=== PATIENT | male | born 1990 | race Caucasian/White ===

== ENCOUNTER 2017-09-02 05:21 | Day surgery (SDC) | payer OTHER ==
[2017-08-11 13:04] VITALS: Ht 177.8 cm; Wt 86.4 kg
[~2017-09-02] VITALS: Ht 177.8 cm; Wt 86.4 kg
[2017-09-02 05:43] VITALS: BP 122/81; PULSE 81; TEMP 36.6; O2SAT 98
[2017-09-02] MEDS ORDERED: LACTATED RINGER'S 1000ML 1,000 ML IV SCH (06:00)
[2017-09-02] MEDS ORDERED: BUPIVACAINE 0.5 % 5 MG/1 ML MPF 30ML VIAL ONE (07:04)
--- NOTE | 2017-09-02 07:24 | Progress Note ---
Progress Note Date of Service September 02, 2017. Progress Note Pt seen and said that he had breakfast with 2 muffins around 4am today. Discussed case with Dr. Santos. Pt opted to have the vasectomy done without anesthesia with local anesthesia only.
[2017-09-02] MEDS ORDERED: ACET300T3 PO (07:25)
--- NOTE | 2017-09-02 07:25 | History & Physical Bridge Note ---
H&P Re-Evaluation Bridge Note: I have examined the patient, reviewed the History & Physical and in the interval since the performance of the History & Physical I have noted the following changes of clinical significance: No changes noted
[2017-09-02] MEDS ORDERED: LIDOCAINE HCL 1% 20 ML VIAL ONE (07:52)
--- NOTE | 2017-09-02 08:24 | [facility] Operative Report ---
Operative Report Operative Date September 02, 2017. Pre-Operative Diagnosis Desire for Sterilization Post-Operative Diagnosis same Procedure(s) Performed Vasectomy under Local Anesthesia Surgeon Dr. Paulo Santos Forensic Psychologist Surgeon(s) none Estimated Blood Loss 0mL Specimens A. Right Vas Deferens B. Left Vas Deferens Drains None Anesthesia Type Local Complication(s) none Disposition yes Description of Procedure Patient was identified in the preoperative holding area, appropriate informed consents reviewed and completed and the patient was transported to the operating suite. Upon arrival he was placed in supine position where he was sterilely prepped and draped in standard fashion. I anesthetized the skin in the mid scrotum and made a 1 cm incision across the raphae. I manipulated the left vas deferens to the incision after anesthetizing perivasal tissues. I then exposed the vas for length of approximately 1/2 cm. A microclip was placed proximally and distally before excising section of vas between the 2. A 3-0 chromic suture was used outside of each previously placed clip to help hold the vas in place. I then used a needle point Bovie to cauterize the lumen of the vas. There was excellent hemostasis, and this left vas was dropped back into the left hemiscrotum. Utilizing the same incision, and anesthetized the tissues into the right scrotum and the perivasal area. I then delivered the right vas into the incision. I exposed 1.5 cm length of vas controlled proximally and distally with micro clips as well as 3-0 chromic sutures. After excising a segment of vas in between these previously placed clips, I cauterized the lumen utilizing a Bovie needlepoint. There was again excellent hemostasis, and the right vas was dropped back in the right hemiscrotum before closing the skin with 2 adjacent 3-0 chromic vertical mattress sutures. Segments of vas were passed off the table as specimen and the case concluded. The patient tolerated the procedure very well. I attest to the content of the Intraoperative Record and any orders documented therein. Any exceptions are noted below.
[2017-09-02 08:25] VITALS: BP 118/64; PULSE 81; TEMP 37; O2SAT 98
[2017-09-02] MEDS ORDERED: KETOROLAC TROMETHAMINE 30 MG/ML VIAL IV. STA (08:26)
--- NOTE | 2017-09-02 08:26 | Discharge Instructions ---
Discharge Instructions Date of Service September 02, 2017. Admission Reason for Admission: Encounter For Sterilization Discharge Discharge Diagnosis / Problem: desired sterilization Discharge Goals Goal(s): Decrease discomfort, Improve function, Increase independence, Improve disease control Activity Recommendations Activity Limitations: per Instructions/Follow-up section Lifting Limitations: none, gradually increase as tolerated (avoid strenuous exercise for 3-5 days) Exercise/Sports Limitations: gradually increase as tolerated May Resume Sexual Activity: after one week (5 days) Shower/Bathe: no limitations Driving or Machine Use: no limitations . Instructions / Follow-Up Instructions / Follow-Up It is very important to continue using contraception, as the result of the vasectomy can take several months to be achieved. We asked the return to our office in 2-3 months or 20-25 ejaculations to provide us with a semen specimen that we can analyze to determine if there are any residual sperm. Prior to obtaining an negative semen analysis, use of contraception is vital to prevent a . It is normal to see some bruising and swelling after vasectomy, as well as have discomfort for the first 3-5 days. For the next 2-3 weeks, mild trauma will elicit a pain response -which is normal. If you are doing very well at 2 weeks , you can cancel your follow-up visit. If there are any questions, I ask you to come the office and we will check your incision to make sure everything is recovering appropriately. Current Hospital Diet Patient's current hospital diet: Discharge Diet Recommended Diet: Regular Diet Procedures Procedures Performed: Vasectomy under Local Anesthesia Pending Studies Studies pending at discharge: no Medical Emergencies . Who to Call and When: Medical Emergencies: If at any time you feel your situation is an emergency, please call 911 immediately. . Non-Emergent Contact Non-Emergency issues call your: Urologist Call Non-Emergent contact if: you have a fever, temperature is above 101.5, your pain is not controlled, your pain is worsening . . "Provider Documentation" section prepared by Jim Mccoy. .
[2017-09-02] MEDS ORDERED: OXYCODONE/ACETAMINOPHEN 5-325 TAB PO PRN ×2 (08:30)
== END 2017-09-02 08:58 | disposition home or self-care (01) ==
LOC: C.ACU 05:21
PROVIDERS: ATTEND Urology
DX: Z30.2 Encounter for sterilization (principal); Z87.09 Personal history of other diseases of the respiratory system; Z98.890 Other specified postprocedural states; Z84.1 Family history of disorders of kidney and ureter; Z83.3 Family history of diabetes mellitus; Z82.49 Family history of ischemic heart disease and other diseases of the circulatory system; Z80.0 Family history of malignant neoplasm of digestive organs